=== PATIENT | female | born 1945 | race Caucasian/White ===

== ENCOUNTER 2024-06-18 17:40 | Emergency (ER) | payer MEDICARE, OTHER, SELFPAY ==
[2024-06-18 17:43] VITALS: BP 156/96
[2024-06-18 19:41] VITALS: BMI 36.3
[2024-06-18 19:42] VITALS: BP 141/67
--- NOTE | 2024-06-18 19:57 | ED.GENMED ---
History of Present Illness
<Katya Lemos DO, Resident - Last Filed: 06/19/24 00:21>
General
Chief Complaint: Skin Problem
Source: patient and family
Time Seen by Provider: 06/18/24 19:31
History of Present Illness
History of Present Illness:
Ms. Olimpia Gibbs is a 79yo F pmh CAD, HTN, HLD, CKD, lymphedema presenting with R eye swelling. She had a headache on Friday. On Friday, her R eye and surrounding area started to have a red rash with 'bubbles.' The rash has grown in size. She
has a 3/10 pain that feels like pressure. Watery discharge in R eye initially, now in both. R eye vision is blurry. Denies diplopia. +clear rhinorrhea, +nonproductive cough, + numb lips, +throat starting to tighten. -SOB, -ear pain, -hearing change,
-neck stiffness/pain, -weakness, -parasthesias, -dysphagia. Last ate yesterday. Had water this morning without issue.
Hx chicken pox in childhood.
Pt lives with daughter, who is present at bedside.
Past History
<Katya Lemos DO, Resident - Last Filed: 06/19/24 00:21>
Past History
ED Past Medical History: CAD, GERD, HTN, Hypercholesterolemia, Renal failure and Other (Previous kidney infections, hysterectomy, lymphedema)
Social History
Tobacco: Non-smoker
Alcohol: Occasional
Family History
Family History: Other (Mother with breast cancer)
Review of Systems
<Katya Lemos DO, Resident - Last Filed: 06/19/24 00:21>
Review of Systems
Allergies reviewed?: Yes
All Other Systems: ROS reviewed and negative except as documented in HPI and ROS
Constitutional: Denies fatigue, night sweats or chills
Respiratory: Denies trouble breathing
Cardiac: Denies chest pain or palpitations
ABD/GI: Denies abdominal pain, nausea, vomiting or diarrhea
Musculoskeletal: Denies muscle stiffness or neck pain
Skin: Reports rash
Phy Exam
<Katya Lemos DO, Resident - Last Filed: 06/19/24 00:21>
General Physical Exam
General Presentation: moderate distress
General age: appears stated age
General Skin: warm and dry
General Habitus: obese
General Mental: alert
ENT Exam
ENT Exam: neck supple, normocephalic and other (Mallampati IV, unable to visualize posterior pharynx)
Additional ENT: L TM normal, R TM not visualized due to impacted cerumen. -Brudzinski sign.
Eye Exam
Eye Exam: PERRL, EOMI and other (R conjunctival injection. )
Conjunctival Changes: right: watery discharge
Eyelid Exam: red and inflamed: Right, edematous: Right, painful to palpate: Right and Ptosis: Right
Type of Exam: fluorescein (no foreign bodies, no corneal abrasions)
Cardiovascular Exam
Cardiovascular Exam: regular rate/rhythm, no gallop, no murmur and other (b/l lower extremity lymphedema)
Heart Sounds: normal
Pulmonary Exam
Pulmonary Exam: lungs clear, no respiratory distress, no rales, no rhonchi, no wheezing and no cough
Gastrointestinal Exam
Gastrointestinal Exam: normal bowel sounds, non tender, soft and non distended
Neurological Exam
Neurological Exam: alert, oriented x3 and CN II-XII intact
Skin Exam
Skin Exam: erythema (over R V1&2 distribution) and other (crusted lesions. no lesions on nose)
Course
<Katya Lemos DO, Resident - Last Filed: 06/19/24 00:21>
Orders/Labs/Results
Orders:
Orders
06/18/24 19:59
Purified Water Eye Wash [Dacriose Eye Wash Solution] 120 ml .ROUTE .STK-MED ONE
06/18/24 20:42
Visual Acuity- Treatment ONCE
06/18/24 20:50
Tetracaine HCl [Tetracaine 0.5% Ophthalmic Solution] 1 drop .ROUTE .STK-MED ONE
06/18/24 21:31
Valacyclovir HCl [Valtrex] 1,000 mg PO DAILY ONE
06/18/24 22:00
Prednisolone Acetate [Pred Forte 1% Eye Drops] See Dose Instructions OPHTH TID
06/18/24 20:19
06/18/24 20:21
Vital Signs
Initial and Last Documented VS:
Initial Vital Signs
Temp Pulse Resp BP Pulse Ox
97.9 F 95 16 156/96 95
06/18/24 17:43 06/18/24 17:43 06/18/24 17:43 06/18/24 17:43 06/18/24 17:43
Last Documented Vital Signs
Temp Pulse Resp BP Pulse Ox
97.9 F 80 18 145/75 98
06/18/24 17:43 06/18/24 22:00 06/18/24 22:00 06/18/24 22:00 06/18/24 22:00
Ziyadlt;Guido Gilbert, DO - Last Filed: 06/18/24 21:41>
Orders/Labs/Results
Orders:
Orders
06/18/24 19:59
Purified Water Eye Wash [Dacriose Eye Wash Solution] 120 ml .ROUTE .STK-MED ONE
06/18/24 20:42
Visual Acuity- Treatment ONCE
06/18/24 20:50
Tetracaine HCl [Tetracaine 0.5% Ophthalmic Solution] 1 drop .ROUTE .STK-MED ONE
06/18/24 21:31
Valacyclovir HCl [Valtrex] 1,000 mg PO DAILY ONE
06/18/24 22:00
Prednisolone Acetate [Pred Forte 1% Eye Drops] See Dose Instructions OPHTH TID
06/18/24 20:19
06/18/24 20:21
Vital Signs
Initial and Last Documented VS:
Initial Vital Signs
Temp Pulse Resp BP Pulse Ox
97.9 F 95 16 156/96 95
06/18/24 17:43 06/18/24 17:43 06/18/24 17:43 06/18/24 17:43 06/18/24 17:43
Last Documented Vital Signs
Temp Pulse Resp BP Pulse Ox
97.9 F 80 18 145/75 98
06/18/24 17:43 06/18/24 22:00 06/18/24 22:00 06/18/24 22:00 06/18/24 22:00
<Katya Lemos DO, Resident - Last Filed: 06/19/24 00:21>
MDM/Problems Addressed
Differential Diagnosis Includes:
burkett knapp syndrome, meningitis, scalded skin syndrome/impetigo
MDM/Problems Addressed:
Ms. Olimpia Gibbs is a 79yo F pmh CAD, HTN, HLD, CKD, lymphedema presenting with R eye swelling.
Scalded skin syndrome is unlikely because there is no purulent drainage, dermatomal distribution, no pain, no itchiness, afebrile, crusted lesions appear to be individual lesions not a contiguous lesion
Burkett knapp syndrome is unlikely as there is no facial drooping, no vesicular lesions in external ear canal. Unable to visualize R tympanic membrane due to cerumen.
Meningitis is unlikely at this time due to no neck stiffness, negative Brudzinski's test, afebrile, no mental status change.
Consulted ophthalmology. Recommended 1g valacyclovir/day, prednisolone 1% eye drops to prevent scarring/inflammation. F/u appointment scheduled w Dr. Louis for Thursday 06/21.
Will renally dose the valacyclovir.
Chronic conditions affecting care: HTN, CAD, Previous abdomnial surgery, Kidney disease and Other (lymphedema)
<Katya Lemos DO, Resident - Last Filed: 06/19/24 00:21>
*Pulse Oximetry
Patient hypoxic: no
*Critical Care Note
Total Time (30-74mins, 75-104mins- exclusive of procedures): Not Applicable
ED Attending Note
<Katya Lemos DO, Resident - Last Filed: 06/19/24 00:21>
-
Portions of this chart may have been created with voice recognition software.� Occasional wrong word or��sound alike� substitutions may have occurred due to the inherent limitations of voice recognition software.
<Guido Gilbert DO - Last Filed: 06/18/24 21:41>
ED Attending Note
Patient seen and examined by attending physician: Yes
I performed a history and physical exam of patient and discussed management with resident, I reviewed resident's note and agree with documented findings and plan of care.: Yes
ED Attending Note:
I have reviewed and agree with history and treatment plan by Katya Lemos DO. My exam revealed 79-year-old female with right facial trigeminal herpes zoster. Conjunctive injected, patient denies vision changes. Discussed with Dr. Louis,
ophthalmology who will see in office on Friday. Recommends Valtrex and prednisolone 1% drops 3 times daily.
Discharge Plan
Departure
Patient Disposition: Home (Routine Discharge)
Date of Disposition: 06/18/24
Time of Disposition: 21:47
Patient with high blood pressure during this ER visit?: Yes
Condition: Fair
Discharge Problem:
Shingles, Zoster conjunctivitis
Instructions: Shingles
Prescriptions:
New
valacyclovir 1 gram tablet
1,000 mg PO DAILY Qty: 7 0RF
prednisolone acetate 1 % drops,suspension
2 drp ophthalmic (eye) TID Qty: 5 0RF
No Action
acetaminophen [Tylenol] 325 mg Tablet
650 mg PO Q4H PRN (Reason: pain)
atorvastatin 10 mg Tablet
10 mg PO HS
loratadine [Claritin] 10 mg Tablet
10 mg PO DAILY
multivitamin Tablet
1 tab PO DAILY
cranberry
2,400 mg PO DAILY
Referrals:
Jay Louis MD [Active] - Keep scheduled appt (8:15 on Thursday 06/21)
Malena Sheffield NP [Family Provider] -
Activity Restrictions/Additional Instructions:
Please refrain from scratching your face. Wash your hands with soap and water regularly.
If you experience new or worsening symptoms, please return to the emergency department. This includes fever, headache, neck stiffness, change or loss in vision, nerve pain, facial paralysis, throat swelling/closing.
Please follow up with Dr. Louis at 8:15am on Thursday 06/21.
Phone:
Address:
[address] [place] [address]
[place] [phone]
Interventions
Interventions:
*Risk Screen - Suicide Last Done: 06/18/24 17:43
*General Assessment Last Done: 06/18/24 20:47
*Neglect/Abuse Screening Last Done: 06/18/24 20:47
ED- Fall Risk Assessment Last Done: 06/18/24 20:54
*ED COVID-19 Vaccine History Last Done: 06/18/24 20:47
*Nursing Disposition Last Done: 06/18/24 22:40
ED-Skin Assessment Last Done: 06/18/24 20:54
Discharge Date and Time
Discharge Date/Time: 06/18/24 22:40
Print Language: TURKMEN
[2024-06-18 20:47] VITALS: BP 146/62
--- NOTE | 2024-06-18 20:53 | EDRN ---
The patient states 'I can't read any of the lines with either eye or with both eyes.'
[2024-06-18 22:00] VITALS: BP 145/75
[2024-06-18] MEDS: PRED FORTE 1% EYE DROPS 1 DROP OPHTH (22:07)
[2024-06-18] MEDS: VALTREX 1000 MG PO (22:20)
== END 2024-06-18 22:40 | disposition home or self-care (01) ==
LOC: EMR 17:40
PROVIDERS: EMERGENCY PHYSICIAN Emergency Medicine; FAMILY PHYSICIAN Internal Medicine
DX: B02.31 Zoster conjunctivitis (principal); I12.9 Hypertensive chronic kidney disease with stage 1 through stage 4 chronic kidney disease, or unspecified chronic kidney disease; N18.9 Chronic kidney disease, unspecified; I25.10 Atherosclerotic heart disease of native coronary artery without angina pectoris
CPT/HCPCS: 99283

== ENCOUNTER → 2025-08-31 15:58 | Outpatient (REF) | payer MEDICARE, SELFPAY | LOC: HWRCS 15:58 | PROVIDERS: ATTENDING PHYSICIAN Internal Medicine Cardiovascular Disease; FAMILY PHYSICIAN Internal Medicine | DX: I44.7 Left bundle-branch block, unspecified (principal) | CPT/HCPCS: 93306 ==